=== PATIENT | female | born 1985 | race Caucasian/White ===

== ENCOUNTER → 2017-07-19 | Outpatient (CLI) | payer OTHER | LOC: M RAD 13:02 | DX: N60.12 Diffuse cystic mastopathy of left breast (principal); N64.4 Mastodynia | CPT/HCPCS: 76642 ==

== ENCOUNTER → 2018-12-11 | Outpatient (CLI) | payer OTHER ==
--- NOTE | 2018-12-12 08:51 | REP ---
MRI lumbar spine without contrast: History: Low back pain. Chronic back pain. No comparison imaging is available. Technique: Sagittal and axial T1 and T2-weighted scans are acquired in the usual fashion with and without fat saturation. Sequences include spin echo, turbo spin-echo, and STIR imaging sequences. MRI findings: Lumbar vertebral body heights are preserved. Alignment is normal. Pedicles and posterior elements are intact. There is no evidence of spondylolysis or spondylolisthesis. No extraspinal abnormality is appreciated. The tip of the conus medullaris is normal in position and appearance at T12-L1. There is degenerative disc narrowing and mild posterior disc bulging noted incidentally at the top of the imaging field of view at T11-12. No thoracic cord compression is seen here. At the L1-2 disc level, there is mild degenerative narrowing and minimal diffuse disc bulging indenting the ventral margin of the thecal sac. No central canal stenosis is seen. No focal disc protrusion or neural foraminal narrowing is observed. At L2-3, L3-4, and L4-5, there is no disc abnormality. At the L4-5 level, there is mild to moderate bilateral facet hypertrophy consistent with osteoarthritis of the facets. No neural foraminal narrowing is seen. At L5-S1, there is mild facet hypertrophy present. There is mild diffuse disc bulging and degenerative disc narrowing at L5-S1. There is subtle indentation of the thecal sac but no central canal stenosis is seen. No neural foraminal encroachment is noted. Impression: Osteoarthritic facet hypertrophy is noted bilaterally at L4-5 and L5-S1. There is mild degenerative disc change at L5-S1, L1-2, and T11-12. Electronically Signed by Omar Mayer MD 12/12/2018 01:00 P
== END ==
LOC: M RAD 18:01
PROVIDERS: ATTEND Family Medicine
DX: M47.816 Spondylosis without myelopathy or radiculopathy, lumbar region (principal); M47.817 Spondylosis without myelopathy or radiculopathy, lumbosacral region; M51.36 Other intervertebral disc degeneration, lumbar region; M51.37 Other intervertebral disc degeneration, lumbosacral region; M51.34 Other intervertebral disc degeneration, thoracic region

== ENCOUNTER → 2019-09-17 | Outpatient (REF) | payer BC | LOC: M PLALAB 09:48 | PROVIDERS: ATTEND Obstetrics & Gynecology | DX: Z33.2 Encounter for elective termination of pregnancy (principal) ==

== ENCOUNTER → 2019-10-02 | Outpatient (REF) | payer BC | LOC: M PLALAB 15:37 | PROVIDERS: ATTEND Obstetrics & Gynecology | DX: Z33.2 Encounter for elective termination of pregnancy (principal) ==

== ENCOUNTER → 2019-12-04 | Outpatient (REF) | payer BC | LOC: M SFHCWAGY 17:04 | PROVIDERS: ATTEND Obstetrics & Gynecology | DX: Z12.4 Encounter for screening for malignant neoplasm of cervix (principal) ==

== ENCOUNTER → 2019-12-09 | Outpatient (REF) | payer BC ==
[~2019-12-09] MED LIST: FISH1000 PO; FOLI400T5 PO; MAPA500T2 PO; MOBI15TA PO; PRENTAB9 PO
[2019-12-09 15:37] LABS: THYROID STIMULATING HORMONE 0.88 uIU/ML (0.358-3.740)
[2019-12-15 09:57] LABS: DRVV SCREEN 35.8 SEC
[2019-12-15 09:58] LABS: PTT LUPUS TYPE ANTICOAG SCREEN 0.9 (0-1.2)
== END ==
LOC: M PLALAB 12:48
PROVIDERS: ATTEND Obstetrics & Gynecology
DX: N96 Recurrent pregnancy loss (principal)

== ENCOUNTER 2020-03-23 09:18 | Day surgery (SDC) | payer OTHER ==
[~2020-03-23] VITALS: Ht 162.6 cm; Wt 80.5 kg
[~2020-03-23 09:18] MED LIST changes: +LR 1,000 ML IV ONE
[2020-03-23 10:05] LABS: BASO # 0.1 10^3/uL (0.0-0.2); BASO % 0.9 % (0.0-1.0); HEMATOCRIT 42.8 % (36.0-47.0); HEMOGLOBIN 14.3 g/dl (12.0-15.5); LYMPH % 36.9 % (24.0-44.0); MEAN CORPUSCULAR HEMOGLOBIN 32.7 pg (27.0-33.0); MEAN CORPUSCULAR HGB CONC 33.4 g/dl (32.0-36.5); MEAN CORPUSCULAR VOLUME 97.9 fl (80.0-96.0); MONO # 0.4 10^3/uL (0.0-0.8); NEUTROPHILS # 2.9 10^3/uL (1.5-8.5); PLATELET COUNT, AUTOMATED 271 10^3/uL (150-450); RED BLOOD COUNT 4.37 10^6/uL (4.00-5.40); WHITE BLOOD COUNT 5.4 10^3/uL (4.0-10.0)
[2020-03-23 10:19] LABS: APPEARANCE, URINE CLEAR (CLEAR); BACTERIA, URINE AUTO 1+ (NEGATIVE); BILIRUBIN, URINE AUTO NEGATIVE (NEGATIVE); BLOOD, URINE BLOOD 1+ (NEGATIVE); COLOR, URINE YELLOW (YELLOW); GLUCOSE, URINE (UA) AUTO NEGATIVE (NEGATIVE); KETONE, URINE AUTO NEGATIVE (NEGATIVE); LEUKOCYTE ESTERASE, URINE AUTO NEGATIVE (NEGATIVE); NITRITE, URINE AUTO NEGATIVE (NEGATIVE); PROTEIN, URINE AUTO NEGATIVE (NEGATIVE); RBC, URINE AUTO 1 /HPF (0-3); SPECIFIC GRAVITY URINE AUTO 1.018 (1.002-1.035); SQUAMOUS EPITHELIAL CELL UR AU 0 /HPF (0-6); UROBILINOGEN, URINE AUTO 0.2 mg/dL (0.0-2.0); WBC, URINE AUTO 2 /HPF (0-3)
[2020-03-23] MEDS ORDERED: MIDAZOLAM INJ 2MG/2ML VIAL (J2250 PER 1MG) As Ordered ONE (10:22)
[2020-03-23] MEDS ORDERED: fentaNYL 100 MCG/2 ML INJECTION (J3010) As Ordered ONE (10:23)
[2020-03-23] MEDS ORDERED: propofoL 200 MG/20 ML VIAL As Ordered ONE (10:24)
[2020-03-23] MEDS ORDERED: LIDOCAINE 2% 100MG/5ML SDV (FOR ANES.) As Ordered ONE (10:26)
[2020-03-23] MEDS ORDERED: dexameTHASONE 4 MG/ML 1ML VIAL (J1100 PER 1MG) As Ordered ONE (12:44)
[2020-03-23] MEDS ORDERED: ONDANSETRON 4MG/2ML VIAL As Ordered ONE (12:45)
[2020-03-23] MEDS ORDERED: KETOROLAC 60MG 2ML VIAL As Ordered ONE (13:25)
[2020-03-23] MEDS ORDERED: SILVER NITRATE APPLICATOR As Ordered ONE (13:25)
[2020-03-23] MEDS ORDERED: PERCOCET 5MG/325MG TAB As Ordered ONE (13:55)
[2020-03-23] MEDS: PERCOCET 5MG/325MG TAB PO PRN ×2 (13:55→15:02)
[2020-03-23] MEDS ORDERED: METOCLOPRAMIDE INJ 10MG/2ML VIAL (J2765 PER 1) IV PRN (14:45)
[2020-03-23] MEDS ORDERED: ONDANSETRON 4MG/2ML VIAL IV PRN (14:45)
[2020-03-23] MEDS ORDERED: LR 1,000 ML IV SCH (14:45)
[2020-03-23] MEDS ORDERED: fentaNYL 100 MCG/2 ML INJECTION (J3010) IV PRN (14:45)
[2020-03-23 15:15] VITALS: BP 137/72
--- NOTE | 2020-04-05 22:34 | ROOPDOC ---
[facility] Report Of Operation Report of Operation DATE OF PROCEDURE: 03/23/20 PREPROCEDURE DIAGNOSES: 1. Recurrent loss 2. Infertility POSTPROCEDURE DIAGNOSES: 1. Recurrent loss 2. Infertility 3. Endometrial polyp PROCEDURE: 1. Operative hysteroscopy 2. Endometrial polypectomy SURGEON: Lissette Kaur DO ANESTHESIA: LMA. ESTIMATED BLOOD LOSS: Approximately 5 mL. COMPLICATIONS: None REMARKS: Bilateral tubal ostia visualized, no uterine septum seen, small endometrial polyp arising at the 4 o'clock position in the endometrial cavity DESCRIPTION OF PROCEDURE: The risks, benefits, indications and alternatives of the procedure were reviewed with the patient and informed consent was obtained. The patient was taken to the operating room where LMA anesthesia was obtained without difficulty. The patient was then placed in the low lithotomy position using Raphael Stirrups. An exam under anesthesia was then performed and significant for a midline, mobile, 6-week sized anteverted uterus with no adnexal masses/fullness appreciated. Patient was then prepped and draped in the sterile fashion. The bladder was emptied by spontaneous void prior to moving patient to the operating room. A sterile speculum was placed in the patients vagina and the cervix was visualized. A single tooth tenaculum was used to grasp the anterior lip of the cervix. A paracervical block was then performed using approximately 10cc of 1% Lidocaine without epinephrine. A uterine sound was gently placed into the uterus, which sounded to 7cm with cervical length of 3cm. The cervix was then gently, serially dilated to a size 15 Setswana enma dilator. The hysteroscope was first primed. The hysteroscope was then advanced through the endocervical canal under direct visualization. After distension of the uterus with warm saline, a systematic examination of the intrauterine cavity was performed. The tubal ostia were visualized bilaterally. An endometrial polyp was seen at the 4 oclock position arising from the left aspect of the endometrial cavity. This was removed using hysteroscopic graspers. The hysteroscope was then removed under direct visualization. Tissue obtained was sent to pathology for review. The single tooth tenaculum was removed from the anterior lip of the cervix. The tenaculum site was noted to be hemostatic. All instruments were then removed from the patients vagina. Hysteroscopic fluid deficit was 100cc of normal saline. The patient tolerated the procedure well. At the completion of the case the sponge and needle counts were correct x 2. The patient was taken to the PACU in stable condition. LISSETTE KAUR DO Apr 05, 2020 22:34
== END 2020-03-23 15:22 | disposition home or self-care (01) ==
LOC: M SDC 09:18
DX: N97.9 Female infertility, unspecified (principal); N84.0 Polyp of corpus uteri; Z79.899 Other long term (current) drug therapy; Z87.891 Personal history of nicotine dependence
CPT/HCPCS: 36415; 58558; 81001; 84702; 85025; 86850; 86900; 86901; 88305; J1100; J1885; J2250; J2405; J3010

== ENCOUNTER → 2020-05-02 | Outpatient (CLI) | payer OTHER ==
[~2020-05-02] MED LIST changes: -LR 1,000 ML IV ONE
== END ==
LOC: M WHC 08:24
PROVIDERS: ATTEND Family Medicine
DX: Z53.9 Procedure and treatment not carried out, unspecified reason (principal); Z12.31 Encounter for screening mammogram for malignant neoplasm of breast